=== PATIENT | male | born 1950 | race African-American/Black ===

== ENCOUNTER 2021-11-01 17:37 | Inpatient (IN) | payer OTHER ==
[2021-11-01 18:28] LABS: #Eosinphils 0.1 10x3/uL (0.0-0.5); #Monocytes 0.8 10x3/uL (0.0-1.1); #Neutrophils 4.6 10x3/uL (1.5-8.4); %Basophils 0.6 % (0.0-2.0); %Eosinophils 0.8 % (0.0-6.0); %Lymphocytes 12.5 % (18.0-47.0); %Monocytes 12.5 % (0.0-10.0); %Neutrophils 73.3 % (40.0-75.0); Hemoglobin 11.9 g/dL (13.5-17.5); Mean Corpuscular HGB CONC 32.2 g/dL (32.0-36.0); Mean Corpuscular Hemoglobin 24.6 pg (27.0-33.0); Mean Corpuscular Volume 76.4 fl (81.2-95.1); Mean Platelet Volume 11.8 fl (7.4-10.4); Platelet Count 184 10x3/uL (150-450); RBC Distribution Width 15.1 % (11.5-14.5); Red Blood Cell (RBC) Count 4.84 10x6/uL (4.32-5.72); White Blood Cell (WBC) Count 6.3 10x3/uL (3.5-10.5)
[2021-11-01 18:30] LABS: Acetaminophen Less than 10.0 mcg/mL (10.0-30.0); Alcohol Less than 10 mg/dL (Less than 10); Salicylate Less than 8.0 mg/dL (15.0-30.0)
[2021-11-01 18:31] LABS: ALT (SGPT) 27 U/L (8-55); AST (SGOT) 27 U/L (5-34); Albumin 3.9 g/dL (3.4-4.8); Alkaline Phosphatase 64 U/L (40-110); Anion Gap 14 mmol/L (10-20); BUN (Urea Nitrogen) 21 mg/dL (8.4-25.7); Bilirubin, Total 0.3 mg/dL (0.2-1.2); Calc. Creatinine Clearance 0 mL/min (70-130); Carbon Dioxide 25 mmol/L (23-31); Chloride 106 mmol/L (98-107); Globulin 3.2 g/dL (2.4-3.5); Glucose 105 mg/dL (80-115); Lipase 52 U/L (8-78); Potassium 4.5 mmol/L (3.5-5.1); Protein, Total 7.1 g/dL (5.8-8.1); Sodium 140 mmol/L (136-145)
[2021-11-01 18:51] LABS: CKMB 0.8 ng/mL (0-6.6)
[2021-11-01] MEDS ORDERED: Aspirin Chewable 81 MG TAB ONE (19:49)
[2021-11-01 20:22] LABS: Bilirubin Neg (Negative); Blood, Urine Negative (Negative); Clarity Clear (Clear); Glucose, Urine (Dipstick) Normal (Negative); Ketone, Urine Negative (Negative); Leukocyte Negative (Negative); Nitrite Negative (Negative); Protein, Urine (Dipstick) Negative (Neg-Trace)
[2021-11-01 20:29] LABS: Amphetamine Not Detected (NotDetected); Barbiturates Screen Not Detected (NotDetected); Benzodiazepine Screen Not Detected (NotDetected); Cocaine Metabolite Screen Not Detected (NotDetected); Methadone Not Detected (NotDetected); Methamphetamine Not Detected (NotDetected); Opiate Screen Not Detected (NotDetected); Oxycodone Screen Not Detected (NotDetected); Phencyclidine (PCP) Not Detected (NotDetected); THC/Cannabinoid Screen Not Detected (NotDetected); Tricyclic Screen Not Detected (NotDetected)
[2021-11-01] MEDS ORDERED: Nitroglycerin 2% Ointment 1 INCH/1 GM Packet ONE (20:58)
[2021-11-01 22:32] LABS: Troponin I 0.058 ng/mL (< 0.028)
[2021-11-01] MEDS ORDERED: Ondansetron PF 4 MG/2 ML Vial IVP PRN (23:28)
[2021-11-01] MEDS ORDERED: Guaifenesin DM 100-10/5 ML UDCUP PO PRN (23:28)
[2021-11-01] MEDS ORDERED: Dextrose 5% in Water 1,000 ML IV PRN (23:28)
[2021-11-01] MEDS ORDERED: HumaLOG 300 UNITS/3 ML VIAL SC PRN (23:28)
[2021-11-01] MEDS ORDERED: Dextrose 50% Abboject 50 ML SYRINGE SLOW IVP PRN (23:28)
[2021-11-01] MEDS ORDERED: Senokot S 8.6-50 MG TAB PO PRN (23:28)
[2021-11-01] MEDS ORDERED: Calcium Carbonate 500 MG ChewTAB PO PRN (23:28)
[2021-11-01] MEDS ORDERED: Amoxicillin/Potassium Clav 875 MG TAB PO SCH (23:45)
[2021-11-01] MEDS ORDERED: Sodium Chloride 0.9% 500 ML IV SCH (23:45)
[2021-11-02 00:45] VITALS: BMI 27.1
[2021-11-02] MEDS ORDERED: Ventolin HFA Inhaler 60 PUFF INHALER INH PRN (01:00)
[2021-11-02] MEDS: Acetaminophen 325 MG TAB PO PRN (05:09)
[2021-11-02 06:13] LABS: #Basophils 0.1 10x3/uL (0.0-0.2); #Eosinphils 0.1 10x3/uL (0.0-0.5); #Monocytes 0.7 10x3/uL (0.0-1.1); #Neutrophils 2.8 10x3/uL (1.5-8.4); %Lymphocytes 27.5 % (18.0-47.0); %Monocytes 14.4 % (0.0-10.0); %Neutrophils 55.9 % (40.0-75.0); Hemoglobin 11.3 g/dL (13.5-17.5); Mean Corpuscular HGB CONC 32.8 g/dL (32.0-36.0); Mean Corpuscular Hemoglobin 24.4 pg (27.0-33.0); Mean Corpuscular Volume 74.3 fl (81.2-95.1); Mean Platelet Volume 10.8 fl (7.4-10.4); Platelet Count 178 10x3/uL (150-450); RBC Distribution Width 15.4 % (11.5-14.5); Red Blood Cell (RBC) Count 4.63 10x6/uL (4.32-5.72); White Blood Cell (WBC) Count 5.1 10x3/uL (3.5-10.5)
[2021-11-02 06:30] LABS: Anion Gap 14 mmol/L (10-20); BUN (Urea Nitrogen) 17 mg/dL (8.4-25.7); CK (CPK) 177 U/L (30-200); Calc. Creatinine Clearance 82 mL/min (70-130); Calcium 8.5 mg/dL (7.8-10.44); Carbon Dioxide 21 mmol/L (23-31); Chloride 109 mmol/L (98-107); Glucose 107 mg/dL (80-115); Iron 16 ug/dL (65-175); Iron Binding Capacity, Total 220 mcg/dL (261-462); Potassium 4.1 mmol/L (3.5-5.1); Sodium 140 mmol/L (136-145)
[2021-11-02] MEDS ORDERED: Budesonide 0.5 MG/2 ML NEB NEB SCH (06:30)
[2021-11-02 06:53] LABS: CKMB 0.9 ng/mL (0-6.6)
[2021-11-02] MEDS ORDERED: Lisinopril 2.5 MG TAB PO SCH (09:00)
[2021-11-02] MEDS: Carvedilol 6.25 MG TAB PO SCH ×2 (09:44→16:25)
[2021-11-02] MEDS: Carbidopa/Levodopa 25-100 mg Tablet PO SCH ×3 (09:44→21:01)
[2021-11-02] MEDS: Enoxaparin Sodium 40 MG/0.4 ML SYRINGE SC SCH (09:44)
[2021-11-02] MEDS: Aspirin 81 mg Enteric Coated Tablet PO SCH (09:44)
[2021-11-02] MEDS: Clopidogrel Bisulfate 75 MG TAB PO SCH (09:45)
[2021-11-02] MEDS: levETIRAcetam 500 MG TAB PO SCH ×2 (09:45→21:01)
[2021-11-02] MEDS: Haloperidol 5 MG TAB PO SCH (09:45)
[2021-11-02] MEDS: Thiamine 100 MG TAB PO SCH (09:45)
[2021-11-02] MEDS: pyridOXINE 50 MG (B6) TAB PO SCH (09:45)
[2021-11-02] MEDS: cefTRIAXone\\ROCEPHIN 1 GM in Sodium Chloride 0.9% 100 ML IVPB SCH (10:37)
[2021-11-02] MEDS ORDERED: Benzonatate 100 MG CAP PO PRN (12:48)
[2021-11-02 17:04] LABS: Bilirubin Neg (Negative); Blood, Urine Negative (Negative); Clarity Clear (Clear); Glucose, Urine (Dipstick) Normal (Negative); Ketone, Urine Negative (Negative); Leukocyte Negative (Negative); Nitrite Negative (Negative); Protein, Urine (Dipstick) Negative (Neg-Trace); Urobilinogen Normal mg/dL (Less than 2)
[2021-11-02 17:20] LABS: Bacteria/HPF 1+ HPF (None Seen); RBC/HPF 0-3 HPF (0-3); Squamous Epithelial 0-3 HPF (0-3); WBC/HPF 0-3 HPF (0-3)
[2021-11-02 17:21] LABS: Mucous/LPF Rare LPF (<2+)
[2021-11-02] MEDS: Mometasone 200 MCG/PUFF (1 INHALER) INH SCH (19:27)
[2021-11-02] MEDS: Doxycycline 100 MG CAP PO SCH (21:01)
[2021-11-02] MEDS: guaiFENesin ER 600 MG TAB PO SCH (21:01)
[2021-11-02] MEDS: Atorvastatin Calcium 10 MG TAB PO SCH (21:01)
[2021-11-03 04:54] LABS: #Basophils 0.1 10x3/uL (0.0-0.2); #Eosinphils 0.1 10x3/uL (0.0-0.5); #Monocytes 0.6 10x3/uL (0.0-1.1); #Neutrophils 1.9 10x3/uL (1.5-8.4); %Eosinophils 1.6 % (0.0-6.0); %Lymphocytes 45.3 % (18.0-47.0); %Monocytes 13.1 % (0.0-10.0); %Neutrophils 38.8 % (40.0-75.0); Hemoglobin 11.6 g/dL (13.5-17.5); Mean Corpuscular HGB CONC 32.7 g/dL (32.0-36.0); Mean Corpuscular Hemoglobin 24.6 pg (27.0-33.0); Mean Corpuscular Volume 75.4 fl (81.2-95.1); Mean Platelet Volume 11.6 fl (7.4-10.4); Platelet Count 178 10x3/uL (150-450); RBC Distribution Width 15.7 % (11.5-14.5); Red Blood Cell (RBC) Count 4.71 10x6/uL (4.32-5.72); White Blood Cell (WBC) Count 4.9 10x3/uL (3.5-10.5)
[2021-11-03 05:05] LABS: Anion Gap 15 mmol/L (10-20); BUN (Urea Nitrogen) 13 mg/dL (8.4-25.7); CRP (Inflammatory) 0.53 mg/dL (= or < 0.5); Calc. Creatinine Clearance 82 mL/min (70-130); Calcium 8.2 mg/dL (7.8-10.44); Carbon Dioxide 20 mmol/L (23-31); Chloride 109 mmol/L (98-107); Glucose 96 mg/dL (80-115); Sodium 139 mmol/L (136-145)
[2021-11-03 05:09] LABS: Potassium 4.5 mmol/L (3.5-5.1)
[2021-11-03] MEDS: Acetaminophen 325 MG TAB PO PRN (06:46)
[2021-11-03] MEDS: Mometasone 200 MCG/PUFF (1 INHALER) INH SCH ×2 (07:15→18:56)
[2021-11-03] MEDS: Doxycycline 100 MG CAP PO SCH ×2 (10:01→21:51)
[2021-11-03] MEDS: guaiFENesin ER 600 MG TAB PO SCH ×2 (10:01→21:51)
[2021-11-03] MEDS: Carvedilol 6.25 MG TAB PO SCH ×2 (10:02→15:48)
[2021-11-03] MEDS: Carbidopa/Levodopa 25-100 mg Tablet PO SCH ×3 (10:02→21:51)
[2021-11-03] MEDS: Aspirin 81 mg Enteric Coated Tablet PO SCH (10:02)
[2021-11-03] MEDS: Thiamine 100 MG TAB PO SCH (10:02)
[2021-11-03] MEDS: Enoxaparin Sodium 40 MG/0.4 ML SYRINGE SC SCH (10:03)
[2021-11-03] MEDS: pyridOXINE 50 MG (B6) TAB PO SCH (10:03)
[2021-11-03] MEDS: levETIRAcetam 500 MG TAB PO SCH ×2 (10:03→21:51)
[2021-11-03] MEDS: Haloperidol 5 MG TAB PO SCH (10:04)
[2021-11-03] MEDS: cefTRIAXone\\ROCEPHIN 1 GM in Sodium Chloride 0.9% 100 ML IVPB SCH (10:06)
[2021-11-03] MEDS: Clopidogrel Bisulfate 75 MG TAB PO SCH (12:17)
[2021-11-03] MEDS ORDERED: Polyethylene Glycol 3350 17 GM Packet PO PRN (12:49)
[2021-11-03] MEDS: Atorvastatin Calcium 10 MG TAB PO SCH (21:51)
[2021-11-03] MEDS: Senokot S 8.6-50 MG TAB PO SCH (21:56)
[2021-11-04] MEDS: Mometasone 200 MCG/PUFF (1 INHALER) INH SCH ×2 (07:22→20:30)
[2021-11-04] MEDS: cefTRIAXone\\ROCEPHIN 1 GM in Sodium Chloride 0.9% 100 ML IVPB SCH (10:23)
[2021-11-04] MEDS: Senokot S 8.6-50 MG TAB PO SCH ×2 (10:25→23:17)
[2021-11-04] MEDS: Enoxaparin Sodium 40 MG/0.4 ML SYRINGE SC SCH (10:25)
[2021-11-04] MEDS: Carbidopa/Levodopa 25-100 mg Tablet PO SCH ×3 (10:26→20:48)
[2021-11-04] MEDS: Thiamine 100 MG TAB PO SCH (10:26)
[2021-11-04] MEDS: Carvedilol 6.25 MG TAB PO SCH ×2 (10:26→16:10)
[2021-11-04] MEDS: guaiFENesin ER 600 MG TAB PO SCH ×2 (10:26→20:49)
[2021-11-04] MEDS: Lisinopril 20 MG TAB PO SCH (10:26)
[2021-11-04] MEDS: Clopidogrel Bisulfate 75 MG TAB PO SCH (10:27)
[2021-11-04] MEDS: Aspirin 81 mg Enteric Coated Tablet PO SCH (10:27)
[2021-11-04] MEDS: Doxycycline 100 MG CAP PO SCH ×2 (10:33→20:48)
[2021-11-04] MEDS: pyridOXINE 50 MG (B6) TAB PO SCH (10:33)
[2021-11-04] MEDS: Haloperidol 5 MG TAB PO SCH (10:33)
[2021-11-04] MEDS: levETIRAcetam 500 MG TAB PO SCH ×2 (10:34→20:49)
[2021-11-04] MEDS: Atorvastatin Calcium 10 MG TAB PO SCH (20:48)
[2021-11-05] MEDS: Mometasone 200 MCG/PUFF (1 INHALER) INH SCH ×2 (07:08→19:15)
[2021-11-05] MEDS: Clopidogrel Bisulfate 75 MG TAB PO SCH (10:41)
[2021-11-05] MEDS: levETIRAcetam 500 MG TAB PO SCH ×2 (10:41→21:32)
[2021-11-05] MEDS: Aspirin 81 mg Enteric Coated Tablet PO SCH (10:41)
[2021-11-05] MEDS: Lisinopril 20 MG TAB PO SCH (10:41)
[2021-11-05] MEDS: Doxycycline 100 MG CAP PO SCH ×2 (10:42→21:31)
[2021-11-05] MEDS: Carvedilol 6.25 MG TAB PO SCH ×2 (10:42→18:21)
[2021-11-05] MEDS: Enoxaparin Sodium 40 MG/0.4 ML SYRINGE SC SCH (10:42)
[2021-11-05] MEDS: Thiamine 100 MG TAB PO SCH (10:42)
[2021-11-05] MEDS: guaiFENesin ER 600 MG TAB PO SCH ×2 (10:42→21:32)
[2021-11-05] MEDS: pyridOXINE 50 MG (B6) TAB PO SCH (10:42)
[2021-11-05] MEDS: Haloperidol 5 MG TAB PO SCH (10:42)
[2021-11-05] MEDS: cefTRIAXone\\ROCEPHIN 1 GM in Sodium Chloride 0.9% 100 ML IVPB SCH (10:43)
[2021-11-05] MEDS: Carbidopa/Levodopa 25-100 mg Tablet PO SCH ×3 (13:55→21:31)
[2021-11-05] MEDS: Senokot S 8.6-50 MG TAB PO SCH ×2 (13:56→21:33)
[2021-11-05] MEDS ORDERED: Lidocaine 2% Viscous Solution 20 ML, Aluminum & Magnesium Hydroxide 30 ML, Donnatal Eli... SSW SCH (14:15)
[2021-11-05] MEDS ORDERED: Lidocaine 2% Viscous Solution 10 ML, Aluminum & Magnesium Hydroxide 30 ML SSW SCH (14:30)
[2021-11-05 15:10] LABS: Troponin I 0.038 ng/mL (< 0.028)
[2021-11-05 18:15] LABS: Troponin I 0.032 ng/mL (< 0.028)
[2021-11-05 21:15] LABS: Troponin I 0.032 ng/mL (< 0.028)
[2021-11-05] MEDS: Acetaminophen 325 MG TAB PO PRN (21:31)
[2021-11-05] MEDS: Atorvastatin Calcium 10 MG TAB PO SCH (21:32)
[2021-11-06] MEDS: Mometasone 200 MCG/PUFF (1 INHALER) INH SCH (06:45)
[2021-11-06] MEDS: Acetaminophen 325 MG TAB PO PRN (09:29)
[2021-11-06] MEDS: Enoxaparin Sodium 40 MG/0.4 ML SYRINGE SC SCH (09:31)
[2021-11-06] MEDS: Thiamine 100 MG TAB PO SCH (09:32)
[2021-11-06] MEDS: Doxycycline 100 MG CAP PO SCH (09:32)
[2021-11-06] MEDS: pyridOXINE 50 MG (B6) TAB PO SCH (09:32)
[2021-11-06] MEDS: Haloperidol 5 MG TAB PO SCH (09:32)
[2021-11-06] MEDS: Lisinopril 20 MG TAB PO SCH (09:32)
[2021-11-06] MEDS: Carbidopa/Levodopa 25-100 mg Tablet PO SCH ×2 (09:33→14:15)
[2021-11-06] MEDS: guaiFENesin ER 600 MG TAB PO SCH (09:33)
[2021-11-06] MEDS: Clopidogrel Bisulfate 75 MG TAB PO SCH (09:33)
[2021-11-06] MEDS: Carvedilol 6.25 MG TAB PO SCH ×2 (09:33→17:36)
[2021-11-06] MEDS: levETIRAcetam 500 MG TAB PO SCH (09:33)
[2021-11-06] MEDS: Aspirin 81 mg Enteric Coated Tablet PO SCH (09:33)
[2021-11-06] MEDS: Senokot S 8.6-50 MG TAB PO SCH (09:34)
[2021-11-06] MEDS: cefTRIAXone\\ROCEPHIN 1 GM in Sodium Chloride 0.9% 100 ML IVPB SCH (09:36)
[2021-11-06 15:53] VITALS: BP 123/80; TEMP 96.7
== END 2021-11-06 18:35 | DRG 178 ==
LOC: CSHERS 17:37 → EEVIPCON 17:37 → INTOOBSV 23:28 → CSHTELE 23:28 → OBSVTOIN 11-02 10:17
PROVIDERS: ADMIT Student in an Organized Health Care Education/Training Program; ATTEND Family Medicine
PROC: 8E0ZXY6 Isolation (ICD-10-PCS; principal; 2021-11-02)
DX: U07.1 COVID-19 (principal); I69.354 Hemiplegia and hemiparesis following cerebral infarction affecting left non-dominant side; E78.5 Hyperlipidemia, unspecified; I25.10 Atherosclerotic heart disease of native coronary artery without angina pectoris; G40.909 Epilepsy, unspecified, not intractable, without status epilepticus; I11.0 Hypertensive heart disease with heart failure; F20.9 Schizophrenia, unspecified; E11.42 Type 2 diabetes mellitus with diabetic polyneuropathy; G20 Parkinson's disease; F32.A Depression, unspecified; R55 Syncope and collapse; J44.9 Chronic obstructive pulmonary disease, unspecified; R07.89 Other chest pain; I69.320 Aphasia following cerebral infarction; I69.322 Dysarthria following cerebral infarction; I69.392 Facial weakness following cerebral infarction; J40 Bronchitis, not specified as acute or chronic; R79.89 Other specified abnormal findings of blood chemistry; Z95.5 Presence of coronary angioplasty implant and graft; Z87.891 Personal history of nicotine dependence; Z79.02 Long term (current) use of antithrombotics/antiplatelets; Z79.82 Long term (current) use of aspirin; Z79.84 Long term (current) use of oral hypoglycemic drugs; Z79.899 Other long term (current) drug therapy
CPT/HCPCS: 36415; 36416; 70450; 71045; 80048; 80177; 80306; 80307; 81001; 81003; 82140; 82550; 82553; 82728; 83540; 83550; 83690; 83735; 83880; 84145; 84146; 84484; 85025; 86140; 93005; 93010; 93306; 93880; 94760; 96360; 96372; G0378; J0696; J1650; J1815; J3490; J7030